=== PATIENT | male | born 1955 | race Caucasian/White ===

== ENCOUNTER 2024-11-25 10:41 | Observation (INO) | payer BC, MEDICARE ==
[~2024-11-25] VITALS: Ht 162.6 cm; Wt 62.6 kg
[2024-11-25 10:48] VITALS: BP 169/109; PULSE 57; RESP 18; TEMP 99.1; O2SAT 98
[2024-11-25 11:25] LABS: BASOPHIL % 0.2 % (0.2-1.2); HEMATOCRIT(ML) 37.1 % (37.0-53.0); HEMOGLOBIN 11.8 g/dL (13.9-16.3); LYMPHOCYTES # 1.85 10^3/uL1 (1.0-4.8); LYMPHOCYTES % 19.8 % (24.0-44.0); MEAN CORP HGB 30.3 pg (26-34); MEAN CORP HGB CONCENTRATION 31.8 g/dL (33-36.5); MEAN CORP VOLUME 95.4 fL (78-100); MONOCYTES # 0.4 10^3/uL (0.3-0.8); MONOCYTES % 4.6 % (5.0-12.0); NEUTROPHILS % 74.9 % (41.0-85.0); PLATELET COUNT 362 10^3/uL (150-400); RED BLOOD CELL 3.89 10^6/uL (4.50-5.90); RED CELL DISTRIBUTION WIDTH 13.9 % (11.5-14.5); WHITE BLOOD CELL 9.4 10^3/uL (4.5-11.0)
[2024-11-25 11:27] LABS: +ADD MANUAL DIFF(NO CHRG) NO
[2024-11-25 11:40] LABS: PROTHROMBIN PROTIME 10.6 SEC (9.3-11.6)
[2024-11-25] MEDS ORDERED: OFIRMEV 1000 MG/100 ML 100 ML IV ONE (11:46)
[2024-11-25 12:01] VITALS: BP 196/95; PULSE 62; RESP 16; O2SAT 98
[2024-11-25 12:02] LABS: ALBUMIN(ML) 3.3 g/dL (3.4-5.0); ALBUMIN/GLOBULIN RATIO 0.916; ANION GAP 9.7; BUN/CREATININE RATIO 16.21 (10.0-20.0); CALCIUM 8.7 mg/dL (8.4-10.5); CREATININE SERUM 1.11 mg/dL (0.59-1.40); EST GFR, NON-AA 65.5 (>/=60); POTASSIUM 4.7 mmol/L (3.6-5.2)
[2024-11-25] MEDS: SUBLIMAZE 100MCG/2ML IV STA (12:19)
[2024-11-25] MEDS: ZOFRAN IV STA (12:19)
[2024-11-25] MEDS: OFIRMEV 1000 MG/100 ML 100 ML IV STA (12:33)
[2024-11-25 12:59] VITALS: BP 163/92; PULSE 83; RESP 16
[2024-11-25 14:00] VITALS: BP 161/92; PULSE 70; RESP 15; O2SAT 96
[2024-11-25] MEDS ORDERED: GABA-1222 PO (14:18)
[2024-11-25] MEDS ORDERED: TIZA-113 PO (14:18)
[2024-11-25] MEDS ORDERED: CARV6.25 PO (14:18)
[2024-11-25] MEDS ORDERED: FLUT9.9S NS (14:18)
[2024-11-25] MEDS ORDERED: ATOR20TA PO (14:18)
[2024-11-25] MEDS ORDERED: CAPT25TA3 PO (14:18)
[2024-11-25] MEDS ORDERED: ASPI-929 PO (14:18)
[2024-11-25] MEDS ORDERED: TERA5CAP3 PO (14:18)
[2024-11-25] MEDS ORDERED: NITR0.4T26 SL (14:18)
[2024-11-25] MEDS ORDERED: ALBU90AE IH (14:18)
[2024-11-25 15:18] VITALS: BP 146/83; PULSE 81; RESP 18; TEMP 97.9; O2SAT 93
[2024-11-25] MEDS ORDERED: MORPHINE SULFATE IV PRN (16:00)
[2024-11-25] MEDS ORDERED: LANSINOH TP PRN (16:00)
[2024-11-25] MEDS ORDERED: TYLENOL PO PRN ×2 (16:00)
[2024-11-25] MEDS ORDERED: SIMETHICONE PO PRN (16:00)
[2024-11-25] MEDS ORDERED: VENTOLIN IH PRN (16:00)
[2024-11-25] MEDS ORDERED: MILK OF MAGNESIA PO PRN (16:00)
[2024-11-25] MEDS ORDERED: ULTRAM PO PRN (16:00)
[2024-11-25] MEDS ORDERED: ZOFRAN IV PRN (16:00)
[2024-11-25] MEDS ORDERED: MYLANTA PO PRN (16:00)
[2024-11-25 16:40] VITALS: BP 146/83; PULSE 81; RESP 18; TEMP 97.9; O2SAT 93
[2024-11-25] MEDS ORDERED: ZANAFLEX PO SCH (17:00)
[2024-11-25] MEDS ORDERED: HYTRIN PO SCH ×2 (21:00)
[2024-11-25] MEDS ORDERED: LIPITOR PO SCH (21:00)
[2024-11-25] MEDS ORDERED: NEURONTIN PO SCH (21:00)
[2024-11-25] MEDS ORDERED: COREG PO SCH (21:00)
[2024-11-26] MEDS ORDERED: FLONASE NS SCH (09:00)
[2024-11-26] MEDS ORDERED: ASPIRIN EC PO SCH (09:00)
[2024-11-26] MEDS ORDERED: PROTONIX PO SCH (09:00)
== END 2024-11-25 16:40 | disposition home or self-care (01) ==
LOC: ER 10:41 → OBS 14:06
PROVIDERS: ADMIT Internal Medicine; ATTEND Internal Medicine
DX: S52.502A Unspecified fracture of the lower end of left radius, initial encounter for closed fracture (principal); S42.212A Unspecified displaced fracture of surgical neck of left humerus, initial encounter for closed fracture; I12.9 Hypertensive chronic kidney disease with stage 1 through stage 4 chronic kidney disease, or unspecified chronic kidney disease; N18.9 Chronic kidney disease, unspecified; K21.9 Gastro-esophageal reflux disease without esophagitis; G89.29 Other chronic pain; M54.9 Dorsalgia, unspecified; K59.00 Constipation, unspecified; W00.0XXA Fall on same level due to ice and snow, initial encounter; Y93.89 Activity, other specified; Y92.89 Other specified places as the place of occurrence of the external cause; Y99.8 Other external cause status; Z79.899 Other long term (current) drug therapy; Z98.890 Other specified postprocedural states
CPT/HCPCS: 96374; 96375; 99285; 73090; 73030; 70450; 71250; 72125; 74177; 73060; 80053; 85025; 36415; 84484; 85610; 85730; 93005; G0378 ×3; J0131; J2405; J3010; Q9965

== ENCOUNTER → 2024-12-16 | Outpatient (CLI) | payer MEDICARE ==
[~2024-12-16] MED LIST: ALBU90AE IH; ASPI-929 PO; ATOR20TA PO; CAPT25TA3 PO; CARV6.25 PO; FLUT9.9S NS; GABA-1222 PO; NITR0.4T26 SL; TERA5CAP3 PO; TIZA-113 PO
== END | disposition home or self-care (01) ==
LOC: RAD 11:00
PROVIDERS: ATTEND Orthopaedic Surgery
DX: S52.592D Other fractures of lower end of left radius, subsequent encounter for closed fracture with routine healing (principal); M25.512 Pain in left shoulder; X58.XXXD Exposure to other specified factors, subsequent encounter
CPT/HCPCS: 73030-LT; 73110-LT

== ENCOUNTER → 2025-01-06 | Outpatient (CLI) | payer MEDICARE | END | disposition home or self-care (01) | LOC: RAD 10:36 | PROVIDERS: ATTEND Orthopaedic Surgery | DX: S42.212D Unspecified displaced fracture of surgical neck of left humerus, subsequent encounter for fracture with routine healing (principal); S62.102D Fracture of unspecified carpal bone, left wrist, subsequent encounter for fracture with routine healing; M19.012 Primary osteoarthritis, left shoulder; M25.812 Other specified joint disorders, left shoulder; M47.812 Spondylosis without myelopathy or radiculopathy, cervical region; X58.XXXD Exposure to other specified factors, subsequent encounter | CPT/HCPCS: 73030-LT; 73110-LT ==